=== PATIENT | female | born 1960 | race Two or more races ===

== ENCOUNTER 2023-12-04 11:17 | Emergency (ER) | payer OTHER ==
[~2023-12-04] VITALS: Ht 162.6 cm; Wt 57.6 kg
[2023-12-04 11:39] VITALS: BP 127/54; TEMP 98.6
[2023-12-04 12:00] VITALS: O2SAT 100
== END 2023-12-04 12:01 | disposition home or self-care (01) ==
LOC: ER 11:26
DX: H61.22 Impacted cerumen, left ear (principal); M25.561 Pain in right knee; J45.909 Unspecified asthma, uncomplicated; Z79.1 Long term (current) use of non-steroidal anti-inflammatories (NSAID); Z79.82 Long term (current) use of aspirin; Z88.2 Allergy status to sulfonamides